=== PATIENT | male | born 2000 | race Asian ===

== ENCOUNTER 2025-01-20 07:43 | Outpatient (AMB) | payer OTHER, SELFPAY ==
--- NOTE | 2025-01-20 07:47 | AM.OFFWIN_ITS ---
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 - Left knee pain began after a strenuous workout involving exercises such as burpees, squats, and mountain climbers. - Suspected hyperextension of the knee d uring the workout, with a possible popping sensation noted. - Knee pain started yesterday morning, w ith some swelling noted at the back of the knee. - The patient reports limping since the onset of pain, with discomfort during flexion. - Lower back pain is described as tightn ess with occasional spasms, affecting both sides. - The pain does not radiate to the legs or into the groin. - No numbness or tingling in the legs is reported. - The patient has been using stretching and Advil for pain management. - He has no swelling to the left knee. - He denies saddle anesthesia, incontine nce, numbness, tingling, swelling, or redness. Physical Exam General: cooperative, healthy appearing and comfortable, patient oriented x3 Head: Normal to inspection, normocephalic/atraumatic Effort & Inspection: Normal respiratory effort and able to speak in complete sentences. Cardiac: RRR, no M/R/G noted. Normal S1 and S2. Respiratory: Clear to auscultation bilaterally. No w/r/r noted. Back/spine: No CVA tenderness bilaterally. Cervical, thoracic and lumbar spine normal to inspection. Cervical ROM normal, no midline spinous tenderness noted. Thoracic ROM normal, lumbar ROM normal. No midline vertebral spinous tenderness noted. No step offs noted. No TTP of the thoracic or lumbar paraspinous or paravertebral muscles. DTR are 2+ on the lower extremities noted. Ambulates with a steady gait. Extremities: Straight leg raise test negative on right; Straight leg raise test negative on left; motor strength normal 5/5 bilaterally. FROM of the left knee. No swelling or redness to the knee. No TTP of the patella, lateral condyle or medial condyle. No TTP of the meniscus bilaterally. TTP of the posterior fossa on the left. Negative anterior drawer, posterior drawer, and [place]. Negative Ballotment. Negative Homans. FROM of the left ankle. Strength is 5/5 on the LE. Ambulates with steady gait. Neuro: Sensation intact. Patient was informed and verbally consented to the use of an ambient scribe for clinic note documentation during this visit. Review of Systems Const All systems reviewed & are unremarkable except as noted in HPI and below Physical Exam Vital Signs: Last Vital Signs Pulse 79 01/20/25 07:50 Resp 16 01/20/25 07:50 BP 102/80 01/20/25 07:50 Pulse Ox 98 01/20/25 07:50 Oxygen Delivery Method Room Air 01/20/25 07:50 BMI result Body Mass Index 28.1 Assessment & Plan Assessment & Plan (1) Back pain: Code(s): M54.9 - Dorsalgia, unspecified Qualifiers: Back pain location: low back pain Back pain laterality: bilateral Chronicity: acute Sciatica presence: without sciatica Qualified Code(s): M54.50 - Low back pain, unspecified (2) Left knee pain: Code(s): M25.562 - Pain in left knee Qualifiers: Chronicity: acute Qualified Code(s): M25.562 - Pain in left knee Plan Most likely muscle strains and unlikely a ligament tear in the knee Plan - Recommend rest and avoidance of strenuous activities, particularly weightlifting and CrossFit, to prevent further strain. - Prescribe muscle relaxants and anti-inflammatory medications for pain management. - Consider a short course of prednisone to reduce inflammation if necessary. - Advise follow-up with primary care if symptoms persist or worsen, with potential consideration for MRI if no improvement. Medications: New cyclobenzaprine 5 mg PO Q8H PRN 20 tabs 0RF Muscle Spasm meloxicam 7.5 mg PO DAILY 7 tabs 0RF 7 days prednisone 40 mg (2 x 20 mg) PO DAILY 6 tabs 0RF 3 days Coding Level of Care Code Est Pt Level 4 (41987) Diagnoses Acute bilateral low back pain without sciatica M54.50 Back pain location: low back pain Back pain laterality: bilateral Chronicity: acute Sciatica presence: without sciatica Acute pain of left knee M25.562 Chronicity: acute
--- OUTSIDE RECORDS SUMMARY | 2025-01-20 07:47 | XMS_ITS ---
Author Name [facility] Organization Unknown Encounters Encounter Type Encounter Reason Primary Diagnosis Location Date Ambulatory [facility] 07/21/2022 Care Team Organization Name Specialty Phone Email Start Date End Da te [facility] DAVID DARBY Primary Care 07/21/20222022 [facility] DAVID DARBY Primary Care 07/21/2022
--- OUTSIDE RECORDS SUMMARY | 2025-01-20 07:47 | XMS_ITS | Clinical Summary ---
Author Organization [facility] it Address [address] [place] [address] Care Team Providers Care Cleaner And Presser Name Role Phone Unavailable Primary Care Provider Unavailabl e Social History Tobacco Use Types Packs/Day Years Used Date Smoking Tobacco: Never Assessed Sex and Gender Information Value Date Recorded Sex Assigned at Not on file Legal Sex Male 3:44 PM EDT Gender Identity Not on file Sexual Orientation Not on file Plan of Treatment Health Maintenance Due Date Last Done Comments HPV Vaccines (1 - Male 3-dos e series) 2017 Meningococcal B Vaccine (1 o f 2 - Standard) 2018 DTaP,Tdap,and Td Vaccines (1 - Tdap) 2021 Hepatitis B Vaccines (1 of 3 - 19+ 3-dose series) 2021 HIV Screening 01/16/2024 Hepatitis C Screening 01/16/2024 Social Influencers of Health Screening 01/16/2024 Depression Screening 04/08/2024 COVID-19 Vaccine (1 - 2023-2 5 season) 2024 Influenza Vaccine (#1) 2024 RSV Immunization Adult Patie nts (1 - 1-dose 75+ series) 2077 HIB Vaccines Aged Out No longer eligi ble based on patient's age to complete this topic Hepatitis A Vaccines Aged Out No long er eligible based on patient's age to complete this topic IPV Vaccines Aged Out No longer eligi ble based on patient's age to complete this topic MMR Vaccines Aged Out No longer eligi ble based on patient's age to complete this topic Meningococcal ACWY Vaccine Aged Out N o longer eligible based on patient's age to complete this topic Pneumococcal Vaccine: Pediat rics (0 to 5 Years) and At-Risk Patients (6 to 49 Years) Aged Out No longer eligible b ased on patient's age to complete this topic RSV Immunization Patients Un opal 20 months Aged Out No longer eligible b ased on patient's age to complete this topic Varicella Vaccines Aged Out No longer eligible based on patient's age to complete this topic
--- OUTSIDE RECORDS SUMMARY | 2025-01-20 07:47 | XMS_ITS | Clinical Summary ---
Author Organization [facility] Address [address] [place] [address] Care Team Providers Care Manager Cable Name Role Phone Yazmin Rock APRN Primary Care Provider Un available Allergies No known active allergies Medications No known medications Active Problems No known active problems Immunizations Immunization Administration Dates Next Due Covid-19 MRNA Vaccine - Pfiz er 5-11 Speedy-Sucrose ([place] Cap) 08/29/2020,08/08/2020 Hepatitis B 07/21/2022,,01/17/2022,2021 IPV 10/31/2020 Influenza, Quadrivalent (FLU ARIX, AFLURIA, FLULAVAL, FLUZONE) Preservative Free IM 01/17/2022,01/31/2021 MMR 10/31/2020 Tdap 09/30/2020 Varicella 10/31/2020 Social History Tobacco Use Types Packs/Day Years Used Date Smoking Tobacco: Never Assessed Sex and Gender Information Value Date Recorded Sex Assigned at Male 07/21/2022 9:03 AM EDT Legal Sex Male 4:42 PM EDT Gender Identity Male 07/21/2022 9:03 AM EDT Sexual Orientation Heterosexual (straight) 07/21 9:03 AM EDT Last Filed Vital Signs Vital Sign Reading Time Taken Comments Blood Pressure 139/66 07/21/2022 9:00 AM EDT Pulse 61 07/21/2022 9:00 AM EDT Temperature - - Respiratory Rate - - Oxygen Saturation 98% 07/21/2022 9:00 AM EDT Inhaled Oxygen Concentration - - Weight 67.6 kg (149 lb) 07/21/2022 9:00 AM EDT Height 167.6 cm (5' 6 ) 07/21/2022 9:00 AM EDT Body Mass Index 24.05 07/21/2022 9:00 AM EDT Plan of Treatment Health Maintenance Due Date Last Done Comments Hepatitis C Virus Screening 2002 HIV Screening 2015 HPV Vaccines (1 - Male 3-dose series) 2017 Influenza Vaccine 11/06/2024 01/17/2022, 01/31/2021 COVID-19 Vaccine (1 - season) 2024 08/29/2020, 08/08/2020 DTaP/Tdap/Td Vaccines (2 - Td or Tdap) 09/30/2030 09/30/2020 Hepatitis B Vaccines Completed 07/21/2022, 02/20/2022, 01/17/2022, Additional history exists Pneumococcal Vaccine: Pediatric (0-5 Years) and At-Risk Patients (6 to 49 Years) Aged Out No longer eligible based on patient's age to complete this topic Insurance [facility] [employer] Care Teams Manager Cable Relationship Specialty Start Date End Date Yazmin Rock APRN PCP - General
[2025-01-20 07:50] VITALS: BP 102/80; PULSE 79; RESP 16; O2SAT 98; BMI 28.1
== END 2025-01-20 09:36 | disposition home or self-care (01) ==
PROVIDERS: Visit Provider Physician Assistant Medical
DX: M54.50 Low back pain, unspecified (principal); M25.562 Pain in left knee

== ENCOUNTER → 2025-01-20 07:43 | Outpatient (BNVA) | payer OTHER, SELFPAY | PROVIDERS: Visit Provider Physician Assistant Medical | DX: M25.562 Pain in left knee (principal); M54.50 Low back pain, unspecified | CPT/HCPCS: 99212 ==